=== PATIENT | female | born 2000 | race Caucasian/White ===

== ENCOUNTER 2019-03-20 23:46 | Emergency (ER) | payer OTHER, SELFPAY ==
[2019-03-20 23:51] VITALS: BP 115/73; PULSE 100; RESP 18; TEMP 36.8; O2SAT 99
--- NOTE | 2019-03-20 23:54 | DI.CT_ITS ---
SYMPTOM/DIAGNOSIS: FELL, HEAD TRAUMA NONCONTRAST HEAD CT: A noncontrast cranial CT was performed. There is significant motion artifact which degrades the images obtained. No calvarial fracture is seen. The mastoid air cells and paranasal sinuses are well aerated except for a small air fluid level in the left maxillary antrum. There is no evidence of acute intracranial hemorrhage, mass effect or midline shift. Ventricular system is normal in appearance. CONCLUSION: Somewhat limited but negative study.
--- NOTE | 2019-03-20 23:55 | ED.GENADUL_ITS ---
Discharge Plan Disposition Patient Disposition: HOME Condition: Stable Discharge Details Chief Complaint: Laceration Clinical Impression: Head trauma, Laceration of head ED Provider: Ernesto eWir Home Meds and New Rx's Prescriptions: Continued lisdexamfetamine [Vyvanse] 30 mg capsule 30 mg PO DAILY RF: 0 norethindrone-e.estradiol-iron [Loestrin Fe 08/02 (28-Day)] 1 mg-20 mcg (21)/75 mg (7) tablet 1 tab PO DAILY Qty: 28 RF: 2 Discharge Instructions Instructions: Laceration (ED), Concussion (ED) Additional Instructions: your cat scan did not show any bleeding in the brain return in 7 days to have the wound evaluated for staple removal if you have new pain such as chest pain or abdominal pain return to the emergency department Medical Decision Making 18 yo female who denies chronic medical problems comes in with [facility]. She states she slipped in the shower and hit her left posteroir head on the ground. Unclear loc. She has a 1cm laceration on the left posterior scalp that I closed with a staple. She has no neck tenderness and denies pain elsewhere. Given possible loc will obtain CT head to evaluate. She does note she had alcohol tonight but is caox4 without focal neuro deficits. Denies other drug use. pt remains caox4 and walking. Her head ct shows no acute findings. Given negative ct and no other findings feel she can be discharged. She is being discharged in care of her school's staff Differential Diagnosis head laceration, tbi Imaging Data Radiologic Study: Attestation: I personally reviewed and interpreted this imaging study as follows: Imaging: CT Scan Radiologist's impression: IMPRESSION: 1. Left parietal scalp laceration. No radiopaque foreign body. No acute calvarial fracture. 2. No acute intracranial hemorrhage or mass effect. HPI General Mode of arrival: ambulatory . Date/Time Provider Initiated Documentation: 03/20/19 23:47 . Limitations to Documentation: no limitations . Information obtained by: patient . History of Present Illness 18 year old F presents to the emergency department with the chief complaint of fall, described as moderate, Quality is described as aching, Patient reports no radiation. Patient started experiencing this hour(s) (1) and it has been constant. No relieving factors improve symptom(s), No exacerbating factors reported . Patient did receive the following treatments prior to arrival, none Related Data Home Medications Medication Instructions Recorded Confirmed lisdexamfetamine 30 mg capsule 30 mg PO DAILY 06/19/18 03/20/19 norethindrone 1 mg-ethinyl 1 tab PO DAILY #28 tab 11/30/18 03/20/19 estradiol 20 mcg (21)-iron 75 mg (7) tablet Previous Rx's Medication Instructions Recorded norethindrone 1 mg-ethinyl 1 tab PO DAILY #28 tab 11/30/18 estradiol 20 mcg (21)-iron 75 mg (7) tablet Allergies Allergy/AdvReac Type Severity Reaction Status Date / Time bee venom protein (honey bee) Allergy Unknown Verified 03/20/19 23:55 General Stated Complaint: Laceration VIRGIL: 3 Review of Systems Review of Systems All systems reviewed & are unremarkable except as noted in HPI and below Constitutional Denies chills, Denies fever(s) and Denies weakness Cardiovascular Denies chest pain and Denies dyspnea Respiratory Denies cough and Denies dyspnea Gastrointestinal Denies abdominal pain, Denies nausea and Denies vomiting Neurologic Denies weakness Psychiatric Denies depression [facility] Social History (Updated 06/19/18 @ 18:16 by Leslie Broderick MD) Smoking/Tobacco Use Status: Current-Occasional Tobacco Type: cigarettes Counseling given: other Details: Pt states she only smokes when she is with her friends in [place]. Alcohol Intake: current Alcohol Intake frequency: 3 or more drinks per day Alcohol type: hard liquor Details: denies Drug use: Never Substance use type: does not use Do you feel safe at home: Yes Do you feel safe in your relationship?: Yes Additional Social history: Pt lives in [place] with mother. Parents Exam Const General: no acute distress Orientation: alert HENNM Head: no palpable skull fracture Ears: external ears normal General nose exam: external nose normal Mouth: moist mucous membranes Eyes General: appearance normal, both eyes and all related structures Neck Neck: normal visual inspection Resp Effort & Inspection: normal respiratory effort and able to speak in complete sentences Cardio Rate: regular rate Skin General skin exam: no rashes or lesions noted Neuro General: alert and oriented x3 Extrem General: normal to inspection Psych Mental Status: mental status grossly normal Course Vital Signs Temperature 36.8 C 03/20/19 23:51 Pulse 100 H 03/20/19 23:51 Respiratory Rate 18 03/20/19 23:51 Blood Pressure 115/73 03/20/19 23:51 Pulse Oximetry 99 03/20/19 23:51 Temperature 36.8 C 03/20/19 23:51 Temperature Source Skin 03/20/19 23:51 Pulse 100 H 03/20/19 23:51 Respiratory Rate 18 03/20/19 23:51 Blood Pressure 115/73 03/20/19 23:51 Blood Pressure Position Sitting 03/20/19 23:51 Pulse Oximetry 99 03/20/19 23:51 Oxygen Delivery Method Room Air 03/20/19 23:51 Oxygen Flow Rate 0 03/20/19 23:51 Pain Level 0 03/20/19 23:51
--- NOTE | 2019-03-21 00:29 | DI.VRAD_ITS ---
EXAM: CT Head Without Contrast EXAM DATE/TIME: 03/20/2019 11:54 PM CLINICAL HISTORY: 18 years old, female; Injury or trauma; Initial encounter; Blunt trauma (contusions or hematomas); Consciousness not specified; Injury details: Per PT: Fell in shower; Patient HX: Fall, head trauma TECHNIQUE: Imaging protocol: Computed tomography of the head without contrast. COMPARISON: No relevant prior studies available. FINDINGS: Brain: No evidence for acute transcortical infarct. No mass effect or midline shift. No extra-axial collection. No acute intracranial hemorrhage. Basal cisterns are patent. Ventricles: Normal. No ventriculomegaly. Bones/joints: No acute calvarial fracture. Sinuses: Visualized sinuses are unremarkable. No fluid levels. Mastoid air cells: Visualized mastoid air cells are well aerated. Soft tissues: Left parietal scalp laceration. No radiopaque foreign body. IMPRESSION: 1. Left parietal scalp laceration. No radiopaque foreign body. No acute calvarial fracture. 2. No acute intracranial hemorrhage or mass effect. Dictated and Authenticated by: Jamie Ray MD. Ordering:HILLARY Orozco MD
== END 2019-03-21 00:35 | disposition home or self-care (01) ==
PROVIDERS: Emergency Provider Emergency Medicine
DX: S01.01XA Laceration without foreign body of scalp, initial encounter (principal); S09.90XA Unspecified injury of head, initial encounter; W18.2XXA Fall in (into) shower or empty bathtub, initial encounter
CPT/HCPCS: 12001; 93018; 99284; 70450; 99282

== ENCOUNTER 2019-03-21 01:59 | Emergency (ER) | payer OTHER, SELFPAY ==
[2019-03-21 02:01] VITALS: BP 130/75; PULSE 91; RESP 18; TEMP 36.9; O2SAT 100
--- NOTE | 2019-03-21 02:07 | W.ED.GENAD ---
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 I saw her earlier tonight after she slipped and hit her head while showering, had 2 suedep placed and negative head ct. She had been drinking earlier tonight. The staff brought her back tonight because they state she voiced that she wanted to kill herself. The pt is currently caox4 with stable gait and clear speech. She states she has no si/hi and that she just said that her world was over earlier becuase of what happened earlier and she was worried it was going to get her removed from school. She denies stating she wants to kill herself and denies this on my exam and denies hi. School staff is reporting that she did state she wanted to kill herself. She has noormal neuro exam, no findings on history or physical exam to suggest underlying medical process. Will have mental health evaluate patient though if patient chooses to leave I do not feel I can hold her against her will given absolute denial of si/hi but she is willing to at least speak with mental health. Do not feel she requires one to one sitter at this time. The patient asked if she could leave and I advised that I couldn't hold her against her will given her clear refusal of si/hi but she may benefit at least speaking with mental health given what happened tonight. She is willing to at least stay to speak with the patient. She has shown no evidence of being under the influence of alcohol or drugs and no evidence of wanting to self harm Pt decided to leave before mental health evaluated here. She had decision making capacity and had clearly stated no si/hi and did not show any evidence of wanting to do so so I do not feel she requires law enforcement to bring her back as what she stated showed no evidence that she wanted to kill herself. Differential Diagnosis si, depression HPI General Mode of arrival: ambulatory. Date/Time Provider Initiated Documentation: 03/21/19 02:07. Limitations to Documentation: no limitations. Information obtained by: patient. History of Present Illness 18 year old F presents to the emergency department with the chief complaint of reported thoughts of self harm by school staff, Patient started experiencing this hour(s) (1) Patient notes no other symptoms.. Patient did receive the following treatments prior to arrival, none Related Data Home Medications Medication Instructions Recorded Confirmed lisdexamfetamine 30 mg capsule 30 mg PO DAILY 06/19/18 03/20/19 norethindrone 1 mg-ethinyl 1 tab PO DAILY #28 tab 11/30/18 03/20/19 estradiol 20 mcg (21)-iron 75 mg (7) tablet Previous Rx's Medication Instructions Recorded norethindrone 1 mg-ethinyl 1 tab PO DAILY #28 tab 11/30/18 estradiol 20 mcg (21)-iron 75 mg (7) tablet Allergies Allergy/AdvReac Type Severity Reaction Status Date / Time bee venom protein (honey bee) Allergy Unknown Verified 03/20/19 23:55 General VIRGIL: 3 Review of Systems Review of Systems All systems reviewed & are unremarkable except as noted in HPI and below Constitutional Denies chills, Denies fever(s) and Denies weakness ENT Denies change in voice Cardiovascular Denies chest pain and Denies dyspnea Respiratory Denies cough and Denies dyspnea Gastrointestinal Denies abdominal pain, Denies nausea and Denies vomiting Genitourinary Denies dysuria Musculoskeletal Denies joint swelling Integumentary/Breasts Denies rash Neurologic Denies weakness Psychiatric Denies depression and Denies hopelessness Endocrine Denies cold intolerance and Denies heat intolerance [facility] Social History (Updated 06/19/18 @ 18:16 by Leslie Broderick MD) Smoking/Tobacco Use Status: Current-Occasional Tobacco Type: cigarettes Counseling given: other Details: Pt states she only smokes when she is with her friends in [place]. Alcohol Intake: current Alcohol Intake frequency: 3 or more drinks per day Alcohol type: hard liquor Details: denies Drug use: Never Substance use type: does not use Do you feel safe at home: Yes Do you feel safe in your relationship?: Yes Additional Social history: Pt lives in [place] with mother. Parents Exam Const General: no acute distress Orientation: alert HENMT Head: no palpable skull fracture Ears: external ears normal General nose exam: external nose normal Mouth: moist mucous membranes Eyes General: appearance normal, both eyes and all related structures Neck Neck: normal visual inspection Resp Effort & Inspection: normal respiratory effort and able to speak in complete sentences Cardio Rate: regular rate Skin General skin exam: no rashes or lesions noted Neuro General: alert and oriented x3 Extrem General: normal to inspection Psych Mental Status: mental status grossly normal
--- NOTE | 2019-03-21 02:40 | NUR.NOTE ---
pt refused to stay and wait for mental health, pt continues to deny ever stating she was suicidal. Dr Weir states pt does not appear to be suicidal and staff can not hold pt against her will. pt eloped with ride. Nursing Note:
== END 2019-03-21 02:30 | disposition home or self-care (01) ==
PROVIDERS: Emergency Provider Emergency Medicine
DX: F90.2 Attention-deficit hyperactivity disorder, combined type (principal); Z53.29 Procedure and treatment not carried out because of patient's decision for other reasons
CPT/HCPCS: 96372; 99284; 99283